=== PATIENT | female | born 1985 | race Caucasian/White ===

== ENCOUNTER 2020-11-04 23:43 | Inpatient (IN) | payer SELFPAY ==
[~2020-11-04 23:43] MED LIST: Iopamidol-370 76% 500 ML 1 ML ONE
[2020-11-05 00:02] LABS: #Basophils 0.1 thou/uL (0.0-0.2); #Eosinphils 0.3 thou/uL (0.0-0.7); #Lymphocytes 3.2 thou/uL (1.20-3.40); #Monocytes 0.6 thou/uL (0.11-0.59); #Neutrophils 10.5 thou/uL (1.40-6.50); %Basophils 0.7 % (0.0-1.0); %Eosinophils 2.1 % (0.0-10.0); %Lymphocytes 21.6 % (21.0-51.0); %Monocytes 3.8 % (0.0-10.0); %Neutrophils 71.8 % (42.0-75.0); Hemoglobin 12.1 g/dL (12.0-16.0); Mean Corpuscular HGB CONC 32.1 g/dL (32.0-36.0); Mean Corpuscular Hemoglobin 27.5 pg (27.0-31.0); Mean Corpuscular Volume 85.7 fL (78.0-98.0); Mean Platelet Volume 7.7 fL (7.4-10.4); Platelet Count 396 thou/uL (130-400); Red Blood Cell (RBC) Count 4.41 mill/uL (4.20-5.40); White Blood Cell (WBC) Count 14.7 thou/uL (4.8-10.8)
[2020-11-05 00:08] LABS: BHCG - Serum Negative (NEGATIVE); Pregs Control Background? CLEAR/WHITE (CLR/WHITE); Pregs Control Bar Appear? YES (CONTROL BAR)
[2020-11-05 00:16] LABS: ALT (SGPT) 64 U/L (8-55); AST (SGOT) 105 U/L (5-34); Albumin 3.7 g/dL (3.5-5.0); Alkaline Phosphatase 93 U/L (40-110); Anion Gap 14 mmol/L (10-20); BUN (Urea Nitrogen) 14 mg/dL (7.0-18.7); Bilirubin, Total 0.2 mg/dL (0.2-1.2); Calc. Creatinine Clearance 0 mL/min (70-130); Calcium 8.8 mg/dL (7.8-10.44); Carbon Dioxide 21 mmol/L (22-29); Chloride 107 mmol/L (98-107); Glucose 128 mg/dL (70-105); Lipase 21 U/L (8-78); Protein, Total 6.7 g/dL (6.0-8.3); Sodium 138 mmol/L (136-145)
[2020-11-05] MEDS ORDERED: Piperacillin/Tazobactam 3.375 GM VIAL ONE (00:41)
[2020-11-05] MEDS ORDERED: Piperacillin/Tazobactam 4.5 GM VIAL ONE (00:44)
[2020-11-05 02:39] VITALS: BMI 28.5
[2020-11-05] MEDS ORDERED: Fentanyl 100 MCG/2 ML VIAL SLOW IVP PRN (02:48)
[2020-11-05] MEDS ORDERED: Acetaminophen 325 MG TAB PO PRN ×2 (03:00→05:25)
[2020-11-05] MEDS ORDERED: Ondansetron PF 4 MG/2 ML Vial IVP PRN ×2 (03:00→05:25)
[2020-11-05] MEDS ORDERED: Ondansetron ODT 4 MG TAB SL PRN (03:00)
[2020-11-05] MEDS: Sodium Chloride 0.9% 1,000 ML IV SCH ×4 (04:16→14:16)
[2020-11-05 05:00] LABS: Troponin I Less than 0.010 ng/mL (< 0.028)
[2020-11-05] MEDS ORDERED: Ondansetron ODT 4 MG TAB PO PRN (05:25)
[2020-11-05] MEDS ORDERED: HYDROcodone/Acetaminophen 5/325 mg Tablet PO PRN ×2 (05:25→13:00)
[2020-11-05] MEDS ORDERED: Senokot S 8.6-50 MG TAB PO PRN (05:25)
[2020-11-05] MEDS ORDERED: Guaifenesin DM 100-10/5 ML UDCUP PO PRN (05:25)
[2020-11-05] MEDS ORDERED: Bisacodyl 10 MG SUPP PR PRN (05:25)
[2020-11-05] MEDS ORDERED: Zolpidem Tartrate 5 MG TAB PO PRN (05:25)
[2020-11-05] MEDS ORDERED: Loperamide HCl 2 MG CAP PO PRN (05:25)
[2020-11-05] MEDS ORDERED: Morphine 4 MG/ML VIAL SLOW IVP PRN (06:15)
[2020-11-05 07:56] LABS: #Eosinphils 0.1 thou/uL (0.0-0.7); #Monocytes 0.4 thou/uL (0.11-0.59); #Neutrophils 5.1 thou/uL (1.40-6.50); %Basophils 0.4 % (0.0-1.0); %Eosinophils 1.4 % (0.0-10.0); %Lymphocytes 25.7 % (21.0-51.0); %Monocytes 5.3 % (0.0-10.0); %Neutrophils 67.2 % (42.0-75.0); Hemoglobin 11.1 g/dL (12.0-16.0); Mean Corpuscular HGB CONC 31.2 g/dL (32.0-36.0); Mean Corpuscular Hemoglobin 26.7 pg (27.0-31.0); Mean Corpuscular Volume 85.4 fL (78.0-98.0); Mean Platelet Volume 7.9 fL (7.4-10.4); Platelet Count 366 thou/uL (130-400); RBC Distribution Width 12.9 % (11.5-14.5); Red Blood Cell (RBC) Count 4.15 mill/uL (4.20-5.40); White Blood Cell (WBC) Count 7.7 thou/uL (4.8-10.8)
[2020-11-05 07:56] LABS: Troponin I 0.013 ng/mL (< 0.028)
[2020-11-05 08:17] LABS: ALT (SGPT) 661 U/L (8-55); AST (SGOT) 925 U/L (5-34); Albumin 3.2 g/dL (3.5-5.0); Alkaline Phosphatase 121 U/L (40-110); Anion Gap 9 mmol/L (10-20); BUN (Urea Nitrogen) 11 mg/dL (7.0-18.7); Bilirubin, Total 0.2 mg/dL (0.2-1.2); Calc. Creatinine Clearance 154 mL/min (70-130); Calcium 8.5 mg/dL (7.8-10.44); Carbon Dioxide 23 mmol/L (22-29); Chloride 108 mmol/L (98-107); Glucose 109 mg/dL (70-105); Lipase 19 U/L (8-78); Protein, Total 6.2 g/dL (6.0-8.3); Sodium 136 mmol/L (136-145)
[2020-11-05] MEDS: Piperacillin/Tazobactam 4.5 GM in Sodium Chloride 0.9% 100 ML IVPB SCH ×2 (08:43→14:15)
[2020-11-05] MEDS ORDERED: Famotidine 20 MG TAB PO SCH (09:00)
[2020-11-05] MEDS ORDERED: Famotidine/PF 20 mg/2ml Vial SLOW IVP SCH (09:00)
[2020-11-05 10:12] LABS: SARS-CoV-2 NAA Rapid Test Not Detected (NotDetected)
[2020-11-05] MEDS ORDERED: Lidocaine 1% w/Epinephrine 1:100K 20 ML VIAL ONE (11:23)
[2020-11-05] MEDS ORDERED: Iothalamate Meglumine 60% 50 ML VIAL FS ONE (11:23)
[2020-11-05] MEDS ORDERED: Bupivacaine 0.25% HCL 30 ML VIAL ONE (11:23)
[2020-11-05] MEDS ORDERED: Famotidine/PF 20 mg/2ml Vial ONE (11:26)
[2020-11-05] MEDS ORDERED: Meperidine HCl/PF 25 MG/ML VIAL ONE (11:26)
[2020-11-05] MEDS ORDERED: SUGAMMADEX SODIUM 200 MG/2 ML VIAL ONE (11:26)
[2020-11-05] MEDS ORDERED: Fentanyl 100 MCG/2 ML VIAL ONE (11:26)
[2020-11-05] MEDS ORDERED: Scopolamine 1.5 mg/72 hour Patch ONE (11:31)
[2020-11-05] MEDS ORDERED: Lidocaine 1% PF 5 ML VIAL ONE (11:39)
[2020-11-05] MEDS ORDERED: Dexamethasone 20 MG/5 ML VIAL ONE (11:39)
[2020-11-05] MEDS ORDERED: PROPOFOL 200 MG/20 ML VIAL ONE (11:39)
[2020-11-05] MEDS ORDERED: Ondansetron PF 4 MG/2 ML Vial ONE (11:39)
[2020-11-05] MEDS ORDERED: Rocuronium Bromide 10 MG/ML (10ML VIAL) ONE (11:39)
[2020-11-05] MEDS ORDERED: Ketorolac Tromethamine 30 MG/ML VIAL ONE (11:39)
[2020-11-05] MEDS ORDERED: Metoclopramide HCl 10 MG/2 ML VIAL ONE (11:39)
[2020-11-05] MEDS ORDERED: Promethazine HCl 25 MG/ML VIAL SLOW IVP PRN (12:51)
[2020-11-05] MEDS ORDERED: Promethazine HCl 25 MG/ML VIAL IM PRN (12:51)
[2020-11-05] MEDS ORDERED: Ondansetron HCl/PF 4 MG/2 ML Vial IVP PRN (12:51)
[2020-11-05] MEDS ORDERED: Meperidine HCl/PF 25 MG/ML VIAL SLOW IVP PRN (12:51)
[2020-11-05] MEDS ORDERED: Ibuprofen 800 MG TAB PO PRN (13:00)
[2020-11-05] MEDS ORDERED: Ibuprofen 200 MG TAB PO PRN (13:00)
[2020-11-05] MEDS ORDERED: traMADol HCl 50 MG TAB PO PRN ×2 (13:00)
[2020-11-05] MEDS ORDERED: Ibuprofen 600 MG TAB PO PRN (13:00)
[2020-11-05 14:29] VITALS: BP 127/87; TEMP 97.5
== END 2020-11-05 17:10 | disposition home or self-care (01) | DRG 418 ==
LOC: ERS 23:43 → SURG B 11-05 01:18
PROVIDERS: ADMIT Internal Medicine; ATTEND Internal Medicine
PROC: 0FT44ZZ Resection of Gallbladder, Percutaneous Endoscopic Approach (ICD-10-PCS; principal; 2020-11-05)
PROC: BF101ZZ Fluoroscopy of Bile Ducts using Low Osmolar Contrast (ICD-10-PCS; 2020-11-05)
DX: K80.00 Calculus of gallbladder with acute cholecystitis without obstruction (principal); I77.4 Celiac artery compression syndrome; Z20.822 Contact with and (suspected) exposure to COVID-19; F15.10 Other stimulant abuse, uncomplicated
CPT/HCPCS: 36415; 47532; 71045; 71275; 74174; 76705; 80053; 83690; 84484; 84703; 85025; 88304; 93005; 96365; J1100; J1885; J2175; J2405; J2543; J2704; J2765; J3010; J3490; Q9961; Q9967; S0020; S0028; U0002